=== PATIENT | female | born 1945 | race Caucasian/White ===

== ENCOUNTER 2018-10-14 09:20 | Emergency (ER) | payer MEDICARE, OTHER ==
[2018-10-14] MEDS: LORAZEPAM 0.5 MG TAB PO (10:14)
[2018-10-14] MEDS: ACETAMINOPHEN 325 MG TAB PO (10:14)
== END 2018-10-14 11:14 | disposition home or self-care (01) ==
LOC: FTE 09:20
DX: M54.2 Cervicalgia (principal); R07.9 Chest pain, unspecified; I10 Essential (primary) hypertension; E03.9 Hypothyroidism, unspecified
CPT/HCPCS: 71046; 72040; 99284-25